=== PATIENT | male | born 1965 | race African-American/Black ===

== ENCOUNTER 2018-09-07 09:28 | Emergency (ER) | payer SELFPAY ==
[~2018-09-07] VITALS: Ht 185.4 cm; Wt 100.0 kg
[~2018-09-07 09:28] MED LIST: AMOXICILLIN500 MG OR; GENTAMICIN SULF5 ML OP; LORTAB 10 PO; NO HOME MEDS
[2018-09-07 10:27] LABS: HEMATOCRIT 44.6 % (39.0-50.0); HEMOGLOBIN 14.3 g/dl (14.0-18.0); IMMATURE GRANULOCYTES 0.5 % (0.0-5.0); MEAN CELL VOLUME 97.6 fL CALC (80.0-100.0); MEAN CORPUSCULAR HGB 31.3 pG CALC (26.0-32.0); MEAN CORPUSCULAR HGB CONC 32.1 g/L CALC (32.0-36.0); NEUT# 3.69 thou/uL (1.82-7.42); RED BLOOD COUNT 4.57 mill/uL (4.70-6.10); RED CELL DISTRI WIDTH 12.6 % (11.5-15.5)
[2018-09-07 10:49] LABS: ANION GAP 11 (6-22 (CALC)); BUN 8 mg/dL (9-20); BUN/CREATININE RATIO 11 (12-20 (CALC)); CARBON DIOXIDE 26 mmol/l (22-30); CHLORIDE 107 mmol/l (95-108); CREATININE 0.8 mg/dL (0.7-1.3); GFR > 60 ML/MIN (>=60 (CALC)); GFR FOR AFR.AMER. > 60 ML/MIN (>=60 (CALC)); SODIUM 140 mmol/l (137-146)
[2018-09-07] MEDS ORDERED: NORVASC2.5 M1 PO (11:21)
[2018-09-07 11:47] VITALS: BP 179/96
== END 2018-09-07 12:00 | disposition home or self-care (01) | DRG 305 ==
LOC: ED 09:28
PROVIDERS: Family Medicine
DX: I10 Essential (primary) hypertension (principal); F17.200 Nicotine dependence, unspecified, uncomplicated